=== PATIENT | male | born 1955 | race American Indian/Alaskan Native ===

== ENCOUNTER 2019-04-16 19:44 | Emergency (ER) | payer MEDICARE ==
--- NOTE | 2019-04-16 20:23 | Emergency Department Report ---
ED General Adult HPI - General Chief complaint: Alcohol Stated complaint: ETOH/FALL Time Seen by Provider: 04/16/19 19:57 Source: patient, family, EMS ( EMS documentation not available at time of chart dictation ), RN notes reviewed Mode of arrival: Stretcher Limitations: No Limitations, Other (intoxication) - History of Present Illness Initial comments: The patient is a 63-year-old gentleman, with a history of hypertension, high cholesterol, possible GERD, gastritis, possible chronic pain. He follows with Dr. Jimenez. He is brought to the hospital by his after alcohol-related trip and fall. The patient denies physical pain at this time. He apparently fell down 3-4 steps. He may have hit his head, he is not sure. He makes no complaint of homicidality or suicidality. -: Sudden Improves with: none Worsens with: none Associated Symptoms: denies other symptoms - Related Data Allergies Allergy/AdvReac Type Severity Reaction Status Date / Time No Known Allergies Allergy Unverified 04/16/19 20:24 ED Review of Systems ROS: Stated complaint: ETOH/FALL Other details as noted in HPI Constitutional: denies: fever Eyes: denies: eye discharge ENT: denies: congestion Respiratory: denies: wheezing Cardiovascular: denies: syncope Gastrointestinal: denies: abdominal pain Musculoskeletal: denies: back pain Neurological: denies: numbness, paresthesias, confusion Psychiatric: denies: suicidal thoughts ED Past Medical Hx - Past Medical History Previous Medical History?: Yes Hx Hypertension: Yes Hx Diabetes: Yes Hx Arthritis: Yes Additional medical history: HLD; BPH; - Surgical History Past Surgical History?: Yes - Social History Smoking Status: Current Every Day Smoker Substance Use Type: Alcohol ED Physical Exam - General Limitations: Other (the patient is intoxicated) General appearance: obese - Head Head exam: Present: atraumatic, normocephalic - Eye Eye exam: Present: normal appearance, PERRL, EOMI, other (visual acuity intact to finger counting and color perception at the closest symptoms). Absent: nystagmus - ENT ENT exam: Present: normal exam, normal orophraynx, mucous membranes moist, normal external ear exam - Neck Neck exam: Present: normal inspection, full ROM. Absent: tenderness, meni ngismus - Respiratory Respiratory exam: Present: normal lung sounds bilaterally. Absent: respiratory distress - Cardiovascular Cardiovascular Exam: Present: regular rate, normal rhythm, normal heart sounds. Absent: bradycardia, tachycardia, irregular rhythm, systolic murmur, diastolic murmur, rubs, gallop - GI/Abdominal GI/Abdominal exam: Present: soft. Absent: distended, tenderness, guarding, pulsatile mass - Rectal Rectal exam: Present: deferred - Extremities Exam Extremities exam: Present: normal inspection, full ROM, other (2+ pulses noted in the bilateral upper and lower extremities. There is no palpable cord. negative Homans sign. Muscular compartments are soft. The pelvis is stable.). Absent: pedal edema, joint swelling, calf tenderness - Back Exam Back exam: Present: normal inspection, full ROM. Absent: tenderness, CVA tenderness (R), CVA tenderness (L), paraspinal tenderness, vertebral tenderness - Neurological Exam Neurological exam: Present: alert, other (there is no facial droop. The tongue is midline. The extraocular movements are intact bilaterally. Speaking in full sentences. Minimal elevation of the base of the tongue. There is 5 out of 5 strength in the bilateral upper and lower extremities, and sensation is intact to light touch in the bilateral upper and lower extremities. Appropriate insight.) - Psychiatric Psychiatric exam: Absent: homicidal ideation, suicidal ideation - Skin Skin exam: Present: warm, dry, intact, normal color. Absent: rash ED Course Vital Signs 04/16/19 04/16/19 20:24 20:45 Temperature 98.3 F Pulse Rate 82 Respiratory 20 20 Rate Blood Pressure 128/84 [Left] O2 Sat by Pulse 85 89 Oximetry - Reevaluation(s) Reevaluation #1: 04/16/19 21:48 Parental diagnosis, including but not limited to: Intracranial injury, cervical spine injury, alcohol intoxication, dehydration Assessment and plan: 63-year-old gentleman with alcohol intoxication. He is otherwise afebrile with reassuring vital signs. He is moving 4 extremities spontaneously and without difficulty. Protecting his airway at this time. He is clinically intoxicated at this time. Laboratory studies show hyperglycemia, anion gap acidosis, elevated blood alcohol level IV fluids, insulin ordered, EKG reviewed and appreciated, patient will be placed on emergency room hold pending improvement of anion gap and hyperglycemia. at the bedside, she is amenable to this plan of care. Reevaluation #2: 04/16/19 23:23 ct scan head and c spine appreciated small subdural bleed and parietal/occipital fracture noted remained of IV fluids canceled keppra ordered, head of bed elevation ordered discussed findings with patient The patient will require transfer to a trauma center. Patient has emergency findings and conditions which cannot be definitively managed at this hospital secondary to lack of subspecialty services. Hypoxia is reviewed and a ppreciated. When patient is sleeping, or resting comfortably, O2 sat in the high 80s, low 90s. He is fairly obese and most likely has obstructive sleep apnea. when hes awake and speaking he saturates in the mid 90s xr chest ordered supplemental o2 ordered [facility] the phone with [facility], to arrange transfer Reevaluation #3: 04/16/19 23:30 Dr. España, trauma surgeon at [place], has graciously accepted the patient as a transfer. Family is updated. ED Medical Decision Making - Lab Data Result diagrams: 04/16/19 20:40 Vital Signs 04/16/19 04/16/19 20:24 20:45 Temperature 98.3 F Pulse Rate 82 Respiratory 20 20 Rate Blood Pressure 128/84 [Left] O2 Sat by Pulse 85 89 Oximetry Lab Results 04/16/19 04/16/19 04/16/19 Range/Units 20:40 20:40 20:40 Sodium 131 L (137-145) mmol/L Potassium 4.2 (3.6-5.0) mmol/L Chloride 88.2 L (98-107) mmol/L Carbon Dioxide 21 L (22-30) mmol/L Anion Gap 26 mmol/L BUN 17 (9-20) mg/dL Creatinine 0.9 (0.8-1.5) mg/dL Estimated GFR > 60 ml/min BUN/Creatinine Ratio 19 % Glucose 383 H (75-100) mg/dL POC Glucose (70-105) Calcium 10.0 (8.4-10.2) mg/dL Magnesium 1.70 (1.7-2.3) mg/dL Total Creatine Kinase 278 H (55-170) units/L Salicylates < 0.3 L (2.8-20.0) mg/dL Acetaminophen < 5.0 L (10.0-30.0) ug/mL Plasma/Serum Alcohol (0-0.07) % 04/16/19 04/16/19 Range/Units 20:40 20:45 Sodium (137-145) mmol/L Potassium (3.6-5.0) mmol/L Chloride (98-107) mmol/L Carbon Dioxide (22-30) mmol/L Anion Gap mmol/L BUN (9-20) mg/dL Creatinine (0.8-1.5) mg/dL Estimated GFR ml/min BUN/Creatinine Ratio % Glucose (75-100) mg/dL POC Glucose 364 H (70-105) Calcium (8.4-10.2) mg/dL Magnesium (1.7-2.3) mg/dL Total Creatine Kinase (55-170) units/L Salicylates (2.8-20.0) mg/dL Acetaminophen (10.0-30.0) ug/mL Plasma/Serum Alcohol 0.18 H (0-0.07) % - EKG Data -: EKG Interpreted by Me EKG shows normal: sinus rhythm Rate: normal - EKG Data 04/16/19 21:50 There is no prior EKG available for comparison. The EKG shows a sinus rhythm, 82 bpm, there is a left axis deviation, there is a left anterior fascicular block, there is low voltage, there is QTC prolonged, there is an incomplete left bundle branch block, there is no endorsement of chest pain, the EKG is abnormal, it is not consistent with ST elevation myocardial infarction. - Radiology Data Radiology results: pending, report reviewed, image reviewed interpreted by me: xr chest with no acute disease Print Report Referring Physician: LESLYE SHIPLEY Patient Name: LIBRA NUNES Date of : 1955 Sex: Male Report Date: 2019-04-16 Report Status: Finalized Findings [facility] [address] [place] [address] Cat Scan Report Signed Patient: LIBRA NUNES MR#: [id number] : 1955 Acct:[id number] Age/Sex: 63 / M ADM Date: 04/16/19 Loc: ED Attending Dr: Ordering Physician: LESLYE SHIPLEY MD Date of Service: 04/16/19 Procedure(s): CT head/brain wo con Accession Number(s): [id number] cc: LESLYE SHIPLEY MD CT head/brain wo con INDICATION / CLINICAL INFORMATION: 63 years Male; etoh intox fall head impact. TECHNIQUE: Routine CT head without contrast. All CT scans at this location are performed using CT dose reduction for ALARA by means of automated exposure control. COMPARISON: None. FINDINGS: BRAIN / INTRACRANIAL CONTENTS: There may be a small area of closed lip schizencephaly in the inferior temporal lobe on the right, posteriorly-of no clinical significance. There are scattered areas of loss of jorge/white differentiation peripherally in both cerebral hemispheres, which may be related to subacute to chronic, small branch infarcts. There is a very small, acute subdural collection seen on the left without significant mass effect. Findings are seen largely along the inner table the left parietal bone extending into the middle cranial fossa. This collection is no more than 1-2 mm in maximum thickness. Otherwise, no acute hemorrhage, mass effect, midline shift, hydrocephalus, or acute, large territorial infarct. Minimal cerebral atrophy. Small, old lacunar infarct is seen in the thalamic region on the right. There are moderate areas of decreased attenuation in the white matter of the cerebral hemispheres, as well as the gangliocapsular regions. These are nonspecific findings and may be related to microangiopathy (hypertension, diabetes, atherosclerosis), given the patient's age. It might be difficult to evaluate for small areas of ischemia without diffusion imaging by MRI. CRANIOCERVICAL JUNCTION: No significant abnormality. ORBITS: No significant abnormality of visualized orbits. SINUSES / MASTOIDS: No significant abnormality the visualized paranasal sinuses or mastoid air cells. ADDITIONAL FINDINGS: Minimal subcutaneous soft tissue swelling is seen in the right parietal region. There is also evidence of a nondisplaced fracture extending from the posterior parietal bone on the right through the lambdoid suture and into the occipital bone on the left. Part of the fracture line also extends inferiorly along the lambdoid suture on the right. No significant atherosclerotic disease appreciated. IMPRESSION: 1. Very small, acute subdural collection along the convexity of the left cerebral hemisphere. There is no associated mass effect. Close follow-up is recommended to ensure stability and/or resolution of this finding. 2. Small, nondisplaced fracture of the right parietal-occipital region as described above. Signer Name: Celso Pino MD, III Signed: 04/16/2019 9:56 PM Workstation Name: [id number] Transcribed By: HR Dictated By: Celso Pino MD Electronically Authenticated By: Celso Pino MD Signed Date/Time: 04/16/192155 Print Report Referring Physician: LESLYE SHIPLEY Patient Name: LIBRA NUNES Date of : 1955 Sex: Male Report Date: 2019-04-16 Report Status: Finalized Findings [facility] [address] [place] [address] Cat Scan Report Signed Patient: LIBRA NUNES MR#: [id number] : 1955 Acct:[id number] Age/Sex: 63 / M ADM Date: 04/16/19 Loc: ED Attending Dr: Ordering Physician: LESLYE SHIPLEY MD Date of Service: 04/16/19 Procedure(s): CT cervical spine wo con Accession Number(s): [id number] cc: LESLYE SHIPLEY MD CT cervical spine wo con INDICATION: etoh intox fall head impact. TECHNIQUE: All CT scans at this location are performed using CT dose reduction for ALARA by means of automated exposure control. COMPARISON: None available. FINDINGS: Slightly displaced fractures of the occipital bone bilaterally. Moderate spondylosis of the lower cervical spine, but no fracture or subluxation. IMPRESSION: 1. Occipital bone fractures. 2. No cervical spine fractures. Signer Name: Santiago Edmond MD Signed: 04/16/2019 9:51 PM Workstation Name: [id number] Transcribed By: TM Dictated By: Santiago Edmond MD Electronically Authenticated By: Santiago Edmond MD Signed Date/Time: 04/16/192150 Critical Care Time: Yes Critical care time in (mins) excluding proc time.: 60 Critical care attestation.: If time is entered above; I have spent that time in minutes in the direct care of this critically ill patient, excluding procedure time. ED Disposition Clinical Impression: Traumatic subdural hematoma, Skull fracture, Alcohol intoxication Disposition: [id number]-TRM GEN HOSP IP Is pt being admited?: No Does the pt Need Aspirin: No Condition: Critical
[2019-04-16 21:12] LABS: BUN/Creatinine Ratio 19; Blood Urea Nitrogen 17 mg/dL (9-20); Hemolysis Index 19
[2019-04-16] MEDS ORDERED: SODIUM CHLORIDE 0.9% 1000 ML 2,000 ML IV ONE (21:47)
[2019-04-16] MEDS ORDERED: INSULIN REGULAR, HUMAN 100 UNITS/1 ML IV ONE (21:48)
--- NOTE | 2019-04-16 21:55 | Cat Scan Report ---
CT cervical spine wo con INDICATION: etoh intox fall head impact. TECHNIQUE: All CT scans at this location are performed using CT dose reduction for ALARA by means of automated e xposure control. COMPARISON: None available. FINDINGS: Slightly displaced fractures of the occipital bone bilaterally. Moderate spondylosis of the lower cervical spine, but no fracture or subluxation. IMPRESSION: 1. Occipital bone fractures. 2. No cervical spine fractures. Signer Name: Santiago Edmond MD Signed: 04/16/2019 9:51 PM Workstation Name: [id number]
--- NOTE | 2019-04-16 22:01 | Cat Scan Report ---
CT head/brain wo con INDICATION / CLINICAL INFORMATION: 63 years Male; etoh intox fall head impact. TECHNIQUE: Routine CT head without contrast. All CT scans at this location are performed using CT dos e reduction for ALARA by means of automated exposure control. COMPARISON: None. FINDINGS: BRAIN / INTRACRANIAL CONTENTS: There may be a small area of closed lip schizencephaly in the inferior temporal lobe on the right, posteriorly-of no clinical significance. There are scattered areas of loss of jorge/white differentiation peripherally in both cerebral hemisph eres, which may be related to subacute to chronic, small branch infarcts. There is a very small, acute subdural collection seen on the left without significant mass effect. Fi ndings are seen largely along the inner table the left parietal bone extending into the middle crania l fossa. This collection is no more than 1-2 mm in maximum thickness. Otherwise, no acute hemorrhage, mass effect, midline shift, hydrocephalus, or acute, large territoria l infarct. Minimal cerebral atrophy. Small, old lacunar infarct is seen in the thalamic region on the right. There are moderate areas of decreased attenuation in the white matter of the cerebral hemispheres, as well as the gangliocapsular regions. These are nonspecific findings and may be related to microangio gemma (hypertension, diabetes, atherosclerosis), given the patient's age. It might be difficult to ev aluate for small areas of ischemia without diffusion imaging by MRI. CRANIOCERVICAL JUNCTION: No significant abnormality. ORBITS: No significant abnormality of visualized orbits. SINUSES / MASTOIDS: No significant abnormality the visualized paranasal sinuses or mastoid air cells. ADDITIONAL FINDINGS: Minimal subcutaneous soft tissue swelling is seen in the right parietal region. There is also evidence of a nondisplaced fracture extending from the posterior parietal bone on the r ight through the lambdoid suture and into the occipital bone on the left. Part of the fracture line a lso extends inferiorly along the lambdoid suture on the right. No significant atherosclerotic disease appreciated. IMPRESSION: 1. Very small, acute subdural collection along the convexity of the left cerebral hemisphere. There i s no associated mass effect. Close follow-up is recommended to ensure stability and/or resolution of this finding. 2. Small, nondisplaced fracture of the right parietal-occipital region as described above. Signer Name: Celso Pino MD, III Signed: 04/16/2019 9:56 PM Workstation Name: [id number]
[2019-04-16] MEDS ORDERED: levETIRAcetam 1000 MG/NS 0.75% 1,000 MG/100 ML BAG IV ONE (23:15)
[2019-04-17 00:03] VITALS: BP 132/65
--- NOTE | 2019-04-17 00:09 | XRay Report ---
CHEST 1 VIEW INDICATION / CLINICAL INFORMATION: fall hypoxxia etoh intox. COMPARISON: None available. FINDINGS: SUPPORT DEVICES: None. HEART / MEDIASTINUM: No significant abnormality. LUNGS / PLEURA: No significant pulmonary or pleural abnormality. No pneumothorax. ADDITIONAL FINDINGS: No significant additional findings. IMPRESSION: 1. No significant change Signer Name: Nicko Reynaga MD Signed: 04/17/2019 12:05 AM Workstation Name: [id number]
[2019-04-17 00:12] LABS: INR 1.03 (0.87-1.13); Partial Thromboplastin Time 23.7 Sec. (24.2-36.6)
[2019-04-17 00:27] LABS: Hematocrit 41.6 % (35.5-45.6); Hemoglobin 13.7 gm/dl (11.8-15.2); Mean Corpuscular HGB Conc 33 % (32-34); Mean Corpuscular Volume 88 fl (84-94); Platelet Count 259 K/mm3 (140-440); Red Blood Count 4.73 M/mm3 (3.65-5.03); Red Cell Distribution Width 13.8 % (13.2-15.2)
== END 2019-04-17 00:52 | disposition short-term general hospital (02) ==
LOC: ED 19:44
DX: S06.5X0A Traumatic subdural hemorrhage without loss of consciousness, initial encounter (principal); S02.119A Unspecified fracture of occiput, initial encounter for closed fracture; F10.129 Alcohol abuse with intoxication, unspecified; I10 Essential (primary) hypertension; E11.9 Type 2 diabetes mellitus without complications; M19.90 Unspecified osteoarthritis, unspecified site; F17.200 Nicotine dependence, unspecified, uncomplicated; W10.8XXA Fall (on) (from) other stairs and steps, initial encounter; Y93.89 Activity, other specified; Y92.89 Other specified places as the place of occurrence of the external cause; Y99.8 Other external cause status
CPT/HCPCS: 36415; 70450; 71045; 72125; 80048; 82550; 82962; 83735; 85027; 85610; 85730; 93005; 93010; 96374; 96375; 99291; J1953; J7030; 80320; G0480; J1815